=== PATIENT | male | born 1960 | race African-American/Black ===

== ENCOUNTER 2016-07-07 09:00 | Inpatient (IN) | payer BC ==
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
--- NOTE | ~2016-07-07 | PN ---
Unit #: [id number] #: [id number] Patient: BRITTA PERDOMO JR [id number] [facility] [address] [place] [address] [id number] I MR#: [id number] NAME: BRITTA PERDOMO JR ROOM: P177 Age: 55 Sex: M Admission Date: 07/07/2016 : 1960 Attending Physician: Haritha Hoffman M.D. Admitting Physician: Haritha Hoffman M.D. Primary Care Physician: Primary Care Physician Margy CORNELL NOTES DATE 07/10/2016 DISCUSSION Mr. Perdomo is a 55-year-old male who was seen today and chart was reviewed and case was discussed with the staff. He has been anxious, withdrawn and rather seclusive to himself. Meanwhile, he has been cooperative with treatment recommendations and has been taking medications and tolerating them fairly well. MENTAL STATUS EXAMINATION Middle-aged male who was casually dressed with fair personal hygiene and appears to be in no acute distress or discomfort. He was awake and alert on interaction with intact orientation. His mood was anxious with congruent affect. His speech is slow and restricted in content. He denies any suicidal or homicidal ideations. His insight and judgement remains slightly impaired. TREATMENT PLAN 1. Will continue on his current medications and treatment protocol. Will monitor his response to the medications and make further adjustments as needed. 2. Will continue to follow up. Dictated by... Segundo Reeves/sharlene TD: 07/10/2016 23:13 JOB #: [id number] Unit #: [id number] #: [id number] Patient: BRITTA PERDOMO JR JAMAR PROGRESS NOTES Page 1 of 1 X Haritha Hoffman MD PROGRESS NOTE
--- NOTE | ~2016-07-07 | DS ---
Unit #: [id number] #: [id number] Patient: BRITTA PERDOMO JR [id number] [facility] [place] [address] [id number] I MR#: [id number] NAME: BRITTA PERDOMO JR ROOM: P177 Age: 55 Sex: M Admission Date: 07/07/2016 : 1960 Discharge Date: 07/11/2016 Attending Physician: Haritha Hoffman M.D. Primary Care Physician: Primary Care Physician No DISCHARGE SUMMARY IDENTIFYING DATA Mr. Perdomo is a 55-year-old single male, who is a resident of [place], [place] and was self-referred to the hospital on a voluntary basis. DISCHARGE DIAGNOSES Psychiatric: Opioid dependence, moderate and acute withdrawals; opioid-induced mood disorder. Medical: None. Stressors: Moderate psychosocial stressors. HISTORY OF PRESENT ILLNESS Please see initial psychiatric evaluation for details. PAST PSYCHIATRIC HISTORY Please see initial psychiatric evaluation for details. PAST MEDICAL HISTORY Please see initial psychiatric evaluation for details. HOSPITAL COURSE The patient was admitted to the adult chemical dependency unit at [facility] and was oriented to the hospital environment. Routine p.r.n. medications were initiated and was started on the detox protocol and was closely monitored. He was taking the medications regularly and was tolerating them fairly well and was able to show a decent therapeutic response with improvement in depression and anxiety and was willing to continue treatment on an outpatient basis and as such, it was decided that he will be discharged home and will continue treatment on an outpatient basis. DISCHARGE MEDICATIONS None. DISCHARGE CONDITION Stable. PROGNOSIS Fair. Dictated by... Haritha Hoffman M.D. IAA/modl Unit #: [id number] #: [id number] Patient: BRITTA PERDOMO JR TD: 07/11/2016 06:27 JOB #: [id number] DISCHARGE SUMMARY Page 1 of 1 X Haritha Hoffman MD X DISCHARGE SUMMARY
--- NOTE | ~2016-07-07 | PA ---
Unit #: [id number] #: [id number] Patient: BRITTA PERDOMO JR [id number] [facility] [address] [place] [address] [id number] I MR#: [id number] NAME: BRITTA PERDOMO JR ROOM: P177 Age: 55 Sex: M Admission Date: 07/07/2016 : 1960 Date of Assessment: Attending Physician: Haritha Hoffman M.D. Admitting Physician: Haritha Hoffman M.D. PSYCHIATRIC ASSESSMENT DATE OF SERVICE 07/07/2016. IDENTIFYING DATA Mr. Perdomo is a 55-year-old, single, male who is a resident of [place], [place] and was self-referred to the hospital on a voluntary basis. CHIEF COMPLAINT "I want to detox from heroin." HISTORY OF PRESENT ILLNESS Mr. Perdomo is a 55-year-old, male who was referred to us by [place] and reports that he has been a resident of [facility] and tested dirty and was told that he needs to come here to get detox and reports that he has been using heroin and he has not used since yesterday and he was seen to have a COWS score of 15 indicating significant withdrawal symptoms from heroin. He reports he uses a gram of IV heroin on daily basis and has been using for the past year after being clean for 4 years and reports increasing depression and considering suicide, and reports that he is tired of living this way and wants to get his life back and when I asked, he wants to harm or kill anyone else. The patient stated "I have all kind of thoughts." He then denied any specific person or plan; however, he was seen to be danger to self and others and as such, recommendation for inpatient level of care for safety and stabilization was made and the patient was transferred to us. SUBSTANCE ABUSE HISTORY The patient reports history of cocaine and opioid abuse, and currently opioids, particularly heroin has been his drug of choice and reports that he has been using a gram of IV heroin on daily basis. PAST PSYCHIATRIC HISTORY The patient has had history of inpatient chemical dependency treatment at [place] and review of the medical records indicated currently he is not active in any treatment program, is not seeing a psychiatrist, and not taking any psychotropic medications. PAST MEDICAL HISTORY No acute or chronic medical illnesses. ALLERGIES No known medication allergies. Unit #: [id number] #: [id number] Patient: BRITTA PERDOMO JR CURRENT MEDICATIONS None. PERSONAL AND SOCIAL HISTORY A 55-year-old, male who reports that he is single, unemployed, and lives in a homeless long term and has poor social support system. MENTAL STATUS EXAMINATION Middle-aged, male who was casually dressed with fair personal hygiene, appears to be in no acute distress or discomfort. He was awake and alert on interaction with intact orientation to time, place, and person. His mood was anxious and depressed with a congruent affect. His speech was slow and goal directed. He reports having suicidal ideations, but denies any homicidal ideations. His insight and judgment remain significantly impaired. DIAGNOSTIC IMPRESSION Psychiatric: Opioid dependence, moderate and acute withdrawals; opioid-induced mood disorder. Medical: None. Stressors: Moderate psychosocial stressors. TREATMENT PLAN 1. The patient has presented with history of mood disorder and substance abuse. We will recommend inpatient hospitalization for safety and stabilization. We will start him back on his home medications and we will adjust the medications and monitor response. 2. Supportive therapy was provided to the patient. ESTIMATED LENGTH OF STAY 5 to 7 days. ABILITY TO HELP SELF Limited. WILLINGNESS TO HELP SELF The patient appears to be willing to help self. STRENGTHS 1. Communicative. 2. Cooperative. PROBLEMS 1. Chronic dysphoric symptoms. 2. Chronic chemical dependency. 3. Poor social support system. DISCHARGE CRITERIA This will be contingent upon the patient's ability to show resolution of his depression and anxiety and his ability to stay safe to himself, particularly after discharge from the hospital. Dictated by... Haritha Hoffman M.D. Unit #: [id number] #: [id number] Patient: BRITTA PERDOMO JR IAA/modl TD: 07/08/2016 10:10 JOB #: [id number] PSYCHIATRIC ASSESSMENT Page 1 of 1 X Haritha Hoffman MD PSYCHIATRIC ASSESSMENT
--- NOTE | ~2016-07-07 | PN ---
Unit #: [id number] #: [id number] Patient: BRITTA PERDOMO JR [id number] [facility] [address] [place] [address] [id number] I MR#: [id number] NAME: BRITTA PERDOMO JR ROOM: P177 Age: 55 Sex: M Admission Date: 07/07/2016 : 1960 Attending Physician: Haritha Hoffman M.D. Admitting Physician: Haritha Hoffman M.D. Primary Care Physician: Primary Care Physician Margy CORNELL NOTES DATE OF SERVICE: 07/08/2016 SUBJECTIVE Mr. Perdomo is a 55-year-old male who was seen today and chart was reviewed, and case was discussed with the staff. He has been anxious, withdrawn, and seclusive to himself and appears to be in some distress and discomfort. Meanwhile, he has been compliant with treatment recommendations and has been taking the medications and tolerating them fairly well. MENTAL STATUS EXAMINATION Middle-aged male who was casually dressed with fair personal hygiene, appears to be in slight distress and discomfort. He was awake and alert with impaired attention and concentration. His mood was anxious and depressed . His insight and judgment remain slightly impaired. TREATMENT PLAN 1. We will continue him on his current medications and treatment protocol. We will monitor his response to medications and make further adjustments as needed. 2. We will continue to follow up. Dictated by... Segundo Reeves/franko TD: 07/08/2016 12:12 JOB #: [id number] JAMAR CORNELL NOTES Page 1 of 1 X Haritha Hoffman MD PROGRESS NOTE
--- NOTE | ~2016-07-07 | PN ---
Unit #: [id number] #: [id number] Patient: BRITTA PERDOMO JR [id number] [facility] [address] [place] [address] [id number] I MR#: [id number] NAME: BRITTA PERDOMO JR ROOM: P177 Age: 55 Sex: M Admission Date: 07/07/2016 : 1960 Attending Physician: Haritha Hoffman M.D. Admitting Physician: Haritha Hoffman M.D. Primary Care Physician: Primary Care Physician Margy CORNELL NOTES DATE July 09, 2016 DISCUSSION Mr. Perdomo is a 55-year-old male, who was seen today and chart was reviewed and the case was discussed with the staff. He has been anxious, withdrawn, but has been polite and has been cooperative with the treatment recommendations and appears to be showing improvement in his mood and daily functioning and denies any current thoughts of suicide. Meanwhile, he has been taking medications and tolerating them fairly well. MENTAL STATUS EXAMINATION Middle-aged male, who was casually dressed with fair personal hygiene and appears to be in no acute distress or discomfort. He was awake and alert on interaction with intact orientation. His mood is anxious with a congruent affect. He denies any suicidal or homicidal ideations, and also denies any auditory or visual hallucinations. His insight and judgment remain slightly impaired. TREATMENT PLAN 1. We will continue him on his current medications and treatment protocol, and will monitor his response to the medications, and make further adjustments as needed. 2. We will continue to followup. Dictated by... Segundo Reeves/socorro TD: 07/10/2016 05:01 JOB #: [id number] Unit #: [id number] #: [id number] Patient: BRITTA PERDOMO JR PEAKATARINA PROGRESS NOTES Page 1 of 1 X Haritha Hoffman MD PROGRESS NOTE
== END 2016-07-11 09:45 | disposition home or self-care (01) | DRG 897 ==
LOC: P1E 12:18
PROC: HZ2ZZZZ Detoxification Services for Substance Abuse Treatment (ICD-10-PCS; principal; 2016-07-07)
DX: F11.23 Opioid dependence with withdrawal (principal); F11.24 Opioid dependence with opioid-induced mood disorder; F17.210 Nicotine dependence, cigarettes, uncomplicated; Z59.0 Homelessness